=== PATIENT | female | born 1995 | race Caucasian/White ===

== ENCOUNTER 2017-03-24 18:27 | Emergency (ER) | payer SELFPAY ==
[2017-03-24 18:52] VITALS: BP 108/78
--- NOTE | 2017-03-24 19:46 | UC ---
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 " -During evaluation she reveals that she does cocaine, but denies addiction. Last cocaine was yesterday and day prior. SHe started takinga diet supplement from [employer] but doesn know the name. Takes it tid. Took dayquil this afternoon. Does admit to palpitations that started yesterday. denies CP. States that she always has SOB b/c she has asthma. -c/o UTI sx x 2 weeks, + dysuria. no fevers or chills. -has chronic BV, very frequent. treats w/ flagyl and requests rx. -Siria Doyle, RN was present for much of the history. -she has had several discrepencies to her history. -admits to have taken adderall that wasnt prescribed to her, but not recently. -denies b/c she has a female partner. LMP ~ 3 wks ago, due within the week. - History of Current Complaint Chief Complaint: UCRespiratory Stated Complaint: COUGH,CONGESTION,URINARY Time Seen by Provider: 03/24/17 19:01 Hx Last Menstrual Period: 02/21/17 - Allergy/Home Medications Allergies/Adverse Reactions: Allergies Allergy/AdvReac Type Severity Reaction Status Date / Time SEASONAL Allergy Congestion Uncoded 03/24/17 18:42 PMH/Surg Hx/FS Hx/Imm Hx Previously Healthy: Yes Respiratory History: Asthma - Surgical History Surgical History: Yes Surgery Procedure, Year, and Place: RIGHT ANKLE SURGERY 2012. tonsilectomy - Family History Known Family History: Positive: Cardiac Disease - father at 47 - Social History Alcohol Use: None Substance Use Type: Marijuana Substance Use Comment - Amount & Last Used: occasional use- last used this morning Smoking Status (MU): Heavy Every Day Tobacco Smoker Type: Cigarettes Amount Used/How Often: 1/2 pack daily Have You Smoked in the Last Year: Yes - Immunization History Most Recent Influenza Vaccination: 2016 Most Recent Tetanus Shot: 2011 Vaccination Up to Date: Yes Review of Systems Constitutional: Negative Skin: Negative Eyes: Negative ENT: Negative Respiratory: Negative Cardiovascular: Palpitations Gastrointestinal: Negative Genitourinary: Dysuria, Other - vagina d/c w/ fishy odor. h/o this since 11th grade. treated many times and has seen HOME SCHOOL COORDINATOR. uses flagyl. used vagisil earlier. Motor: Negative Neurovascular: Negative Musculoskeletal: Negative Neurological: Negative Psychological: Negative Is Patient Immunocompromised?: No All Other Systems Reviewed And Are Negative: Yes Physical Exam Triage Information Reviewed: Yes Appearance: Well-Appearing, No Pain Distress, Well-Nourished Vital Signs: Initial Vital Signs Temp 99.4 F 03/24/17 18:44 Pulse 150 03/24/17 18:44 Resp 18 03/24/17 18:44 BP 108/78 03/24/17 18:44 Pulse Ox 100 03/24/17 18:44 Vital Signs Reviewed: Yes Eye Exam: Normal ENT Exam: Normal ENT: Positive: Pharynx normal, Nasal drainage, TMs normal. Negative: Tonsillar swelling, Tonsillar exudate, Sinus tenderness Dental Exam: Normal Neck exam: Normal Neck: Positive: Supple, Nontender, No Lymphadenopathy Respiratory: Positive: Lungs clear, Normal breath sounds, No respiratory distress, No accessory muscle use. Negative: Crackles, Rhonchi, Stridor, Wheezing Cardiovascular: Positive: No Murmur, Tachycardia Abdomen Description: Positive: Soft, Other: - + suprapubic tenderness. Negative : CVA Tenderness (R), CVA Tenderness (L), Distended Musculoskeletal Exam: Normal Neurological Exam: Normal Psychological Exam: Normal Skin Exam: Normal Palpitations Course/Dx - Course Course Of Treatment: -EKG x 2 - sinus tachy 130s-150s. She is kept on monito for much of interview. HR up to 150s. -HCG neg. UA + leuks. sent for cx. -we have checked on her several times over the course of stay at [facility] she is stable w/o any sx. She choses to go home and not ER AMA. -We also discussed that there is a possibility that your insurance may not pay for this visit. - she signed out AMA. knows risks of arrhtmia, cardiac muscle damage, , permanent disability and loss of wages. recommend ER. -advised no decongestants , decrease alb use, no cold meds, stop diet supplements, stop caffeine & ciggs. - Differential Dx/Diagnosis Differential Diagnosis/HQI/PQRI: Cardiomyopathy, Medication Induced, Paroxymal SVT, Pericarditis, Other Provider Diagnoses: sinus tachycardia, BV, UTI Discharge - Discharge Plan Condition: Fair Disposition: AGAINST MEDICAL ADVICE Prescriptions: Metronidazole [Flagyl 500 MG TAB] 500 mg PO BID #14 tab Nitrofurantoin Monohyd Macro [Macrobid] 100 mg PO BID #14 cap Patient Education Materials: Bacterial Vaginosis (ED), Tachycardia (ED) Referrals: No Primary Care Phys,NOPCP [Primary Care Provider] - Additional Instructions: Please makes ure to call your providers at [facility] first thing Sunday. You have been told about the risk of going home rather than the ER as advised, AGAINST MEDICAL ADVICE. Your risks are having an arrhythmia which can lead to . -Make sure to follow up with your HOME SCHOOL COORDINATOR for the chronic BV. -You should go to the ER by calling 911 with any chest pain. palpitations, lightheadedness or dizziness.
== END 2017-03-24 20:09 | disposition left against medical advice (07) ==
LOC: UCCORT 18:27
DX: N76.0 Acute vaginitis (principal); B96.89 Other specified bacterial agents as the cause of diseases classified elsewhere; N39.0 Urinary tract infection, site not specified; R00.0 Tachycardia, unspecified; R05 Cough; R09.81 Nasal congestion; J30.2 Other seasonal allergic rhinitis; J45.909 Unspecified asthma, uncomplicated; F17.210 Nicotine dependence, cigarettes, uncomplicated
CPT/HCPCS: 81003; 84702; 87086; 93005; 99212; G0463

== ENCOUNTER 2019-02-26 16:58 | Emergency (ER) | payer OTHER ==
[2019-02-26 17:13] VITALS: BP 120/90
--- NOTE | 2019-02-26 17:52 | UC ---
UC General HPI - HPI Summary HPI Summary: 23 yo woman with 3 + week of painless rectal bleeding with stool passage. This has increased in the past 2 days, and she has had an increase in low abdominal cramping. Blood is bright red and drips into the toilet water. Has not tried any preparations for hemorrhoids. Denies constipation overall. Long hx of bacterial vaginosis, with last treatment 2 months ago. Sexually active with female partner, declines testing for STI's. - History of Current Complaint Chief Complaint: UCGI Stated Complaint: PERSONAL Time Seen by Provider: 02/26/19 17:38 Hx Obtained From: Patient Hx Last Menstrual Period: 09/11/2018 Onset/Duration: Gradual Onset, Lasting Weeks Timing: Intermittent Episodes Lasting: - seconds Onset Severity: Mild Current Severity: Moderate Pain Intensity: 4 Associated Signs & Symptoms: Positive: Abdominal Pain - low crampy discomfort bilaterally following stool passage. - Allergy/Home Medications Allergies/Adverse Reactions: Allergies Allergy/AdvReac Type Severity Reaction Status Date / Time SEASONAL Allergy Congestion Uncoded 02/26/19 17:13 PMH/Surg Hx/FS Hx/Imm Hx - Additional Past Medical History Additional PMH: overweight Psychological History: Anxiety, Other - chronic pain from scoliosis - Surgical History Surgical History: Yes Surgery Procedure, Year, and Place: RIGHT ANKLE SURGERY 2011. tonsilectomy - Family History Known Family History: Positive: Cardiac Disease - father at 47, Hypertension, Diabetes - father - Social History Occupation: Employed Full-time Alcohol Use: None Substance Use Type: Marijuana Substance Use Comment - Amount & Last Used: daily Smoking Status (MU): Heavy Every Day Tobacco Smoker Type: Cigarettes Amount Used/How Often: 1/2 pack daily Have You Smoked in the Last Year: Yes - Immunization History Most Recent Influenza Vaccination: 2017 Most Recent Tetanus Shot: 2011 Vaccination Up to Date: Yes Review of Systems All Other Systems Reviewed And Are Negative: Yes Constitutional: Positive: Negative Skin: Positive: Negative Eyes: Positive: Negative ENT: Positive: Negative Respiratory: Positive: Negative Cardiovascular: Positive: Negative Gastrointestinal: Positive: Nausea, Other - rectal bleeding Genitourinary: Positive: Vaginal/Penile Discharge Motor: Positive: Negative Neurovascular: Positive: Negative Musculoskeletal: Positive: Negative Neurological: Positive: Negative Psychological: Positive: Negative Is Patient Immunocompromised?: No Physical Exam Triage Information Reviewed: Yes Appearance: Well-Appearing, No Pain Distress, Obese, Other: - mildly flat affect Vital Signs: Initial Vital Signs Temp 100.0 F 02/26/19 17:05 Pulse 117 02/26/19 17:05 Resp 18 02/26/19 17:05 BP 120/90 02/26/19 17:05 Pulse Ox 100 02/26/19 17:05 ENT Exam: Normal Dental Exam: Normal Neck exam: Normal Respiratory: Positive: Lungs clear, Normal breath sounds Cardiovascular: Positive: RRR, No Murmur Abdomen Description: Positive: Nontender, No Organomegaly, Soft, Other: - small external hemorrhoid; rectum without stool or blood, no masses Pelvic Exam: Positive: External Exam Normal, Discharge - + odor Musculoskeletal Exam: Normal Neurological Exam: Normal Psychological Exam: Normal Skin: Positive: Other - + erythema without satellite lesions right groin Course/Dx - Course Course Of Treatment: Flagyl for suspected BV. HC suppositories. - Diagnoses Provider Diagnosis: Hemorrhoid, Bacterial vaginosis Discharge ED - Sign-Out/Discharge Documenting (check all that apply): Patient Departure All imaging exams completed and their final reports reviewed: No Studies - Discharge Plan Condition: Stable Disposition: HOME Prescriptions: Hydrocortisone SUPP* [Anusol HC Supp*] 25 mg RI BID #20 supp metroNIDAZOLE [Flagyl 500 MG TAB] 500 mg PO BID #14 tab Patient Education Materials: Hemorrhoids (ED), Bacterial Vaginosis (ED) Forms: *Work Release Referrals: No Primary Care Phys,NOPCP [Primary Care Provider] - Braxton Winston MD [Medical Doctor] - Additional Instructions: Use hydrocortisone suppositories until rectal bleeding resolves. If you have continued bleeding, please call Dr. Winston, gerneral surgeon, to arrange an assessment of the bleeding. Use a fiber supplemement such as Benefiber daily to imrpve stool passage. Use flagyl for treatment of vaginosis and try use of probiotics (from foods or supplements). Try use of Gold jean powder in the skin folds to decrease the rash in the groin. - Billing Disposition and Condition Condition: STABLE Disposition: Home
--- NOTE | 2019-03-01 07:38 | UC ---
- Progress Note Progress Note: + gardnerella - treated w/ flagyl. -neg whitley and trich. Course/Dx - Diagnoses Provider Diagnoses: Hemorrhoid, Bacterial vaginosis Discharge ED - Sign-Out/Discharge Documenting (check all that apply): Post-Discharge Follow Up All imaging exams completed and their final reports reviewed: No Studies - Discharge Plan Condition: Stable Disposition: HOME Prescriptions: Hydrocortisone SUPP* [Anusol HC Supp*] 25 mg DE BID #20 supp metroNIDAZOLE [Flagyl 500 MG TAB] 500 mg PO BID #14 tab Patient Education Materials: Bacterial Vaginosis (ED), Hemorrhoids (ED) Forms: *Work Release Referrals: No Primary Care Phys,NOPCP [Primary Care Provider] - Braxton Winston MD [Medical Doctor] - Additional Instructions: Use hydrocortisone suppositories until rectal bleeding resolves. If you have continued bleeding, please call Dr. Winston, gerneral surgeon, to arrange an assessment of the bleeding. Use a fiber supplemement such as Benefiber daily to imrpve stool passage. Use flagyl for treatment of vaginosis and try use of probiotics (from foods or supplements). Try use of Gold jean powder in the skin folds to decrease the rash in the groin. - Billing Disposition and Condition Condition: STABLE Disposition: Home
== END 2019-02-26 18:29 | disposition home or self-care (01) ==
LOC: UCCORT 16:58
DX: K64.9 Unspecified hemorrhoids (principal); N76.0 Acute vaginitis; R11.0 Nausea; F17.210 Nicotine dependence, cigarettes, uncomplicated; Z91.09 Other allergy status, other than to drugs and biological substances
CPT/HCPCS: 87480; 87510; 87660; 99212; G0463

== ENCOUNTER 2019-05-19 16:56 | Emergency (ER) | payer SELFPAY ==
[2019-05-19 17:09] VITALS: BP 134/79
--- NOTE | 2019-05-19 17:15 | UC ---
FLU HPI - HPI Summary HPI Summary: Pt presents as a request by her place of employment. Pt called in sick yesterday to fever and employer is requiring pt to be seen by healthcare provider prior to return to work. - History of Current Complaint Chief Complaint: UCRespiratory Stated Complaint: FEVER, CHILLS Time Seen by Provider: 05/19/19 17:12 Hx Obtained From: Patient Hx Last Menstrual Period: 09/11/2018 ?: No Onset/Duration: Sudden Onset, Resolved Severity Currently: None Severity Initially: Mild Pain Intensity: 0 Associated Signs & Symptoms: Positive: Fever, Myalgia Related Hx: Possible Flu/Infectious Exposure - Risk Factors Influenza Risk Factors: Negative - Allergy/Home Medications Allergies/Adverse Reactions: Allergies Allergy/AdvReac Type Severity Reaction Status Date / Time No Known Allergies Allergy Verified 05/19/19 17:04 Home Medications: Home Medications Gabapentin [Neurontin] 300 mg PO DAILY 10/31/18 [History Confirmed 05/19/19] clonazePAM [Clonazepam] 0.5 mg PO DAILY 10/31/18 [History Confirmed 05/19/19] PMH/Surg Hx/FS Hx/Imm Hx Previously Healthy: Yes - Surgical History Surgical History: Yes Surgery Procedure, Year, and Place: RIGHT ANKLE SURGERY 2011. tonsilectomy - Family History Known Family History: Positive: Cardiac Disease - father at 47, Hypertension, Diabetes - father - Social History Occupation: Employed Full-time Lives: With Family Alcohol Use: Occasionally Substance Use Type: Marijuana Substance Use Comment - Amount & Last Used: daily Smoking Status (MU): Heavy Every Day Tobacco Smoker Type: Cigarettes Amount Used/How Often: 1/2 pack daily Have You Smoked in the Last Year: Yes - Immunization History Most Recent Influenza Vaccination: 2016 Most Recent Tetanus Shot: 2011 Vaccination Up to Date: Yes Review of Systems All Other Systems Reviewed And Are Negative: Yes Constitutional: Positive: Fever Skin: Positive: Negative Eyes: Positive: Negative ENT: Positive: Negative Respiratory: Positive: Negative Cardiovascular: Positive: Negative Gastrointestinal: Positive: Negative Genitourinary: Positive: Negative Motor: Positive: Negative Neurovascular: Positive: Negative Musculoskeletal: Positive: Myalgia Neurological/Mental Status: Positive: Negative Psychological: Positive: Negative Is Patient Immunocompromised?: No Physical Exam Triage Information Reviewed: Yes Appearance: Well-Appearing Vital Signs: Initial Vital Signs Temp 98.6 F 05/19/19 17:04 Pulse 120 05/19/19 17:04 Resp 16 05/19/19 17:04 BP 134/79 05/19/19 17:04 Pulse Ox 100 05/19/19 17:04 Vital Signs Reviewed: Yes Eye Exam: Normal ENT Exam: Normal Dental Exam: Normal Neck exam: Normal Neck: Positive: Supple, Nontender, No Lymphadenopathy Respiratory Exam: Normal Cardiovascular: Positive: Tachycardia Musculoskeletal Exam: Normal Neurological Exam: Normal Psychological Exam: Normal Skin Exam: Normal Flu Course/Dx - Differential Dx/Diagnosis Differential Diagnosis/HQI/PQRI: Bronchitis, Influenza, Upper Respiratory Infection Provider Diagnosis: Viral syndrome Discharge ED - Sign-Out/Discharge Documenting (check all that apply): Patient Departure All imaging exams completed and their final reports reviewed: No Studies - Discharge Plan Condition: Stable Disposition: HOME Patient Education Materials: Viral Syndrome (ED) Forms: *Gen. Provider Communication Referrals: [facility] [Outside] - If Needed No Primary Care Phys,NOPCP [Primary Care Provider] - - Billing Disposition and Condition Condition: STABLE Disposition: Home
== END 2019-05-19 17:22 | disposition home or self-care (01) ==
LOC: UCCORT 16:56
DX: B34.9 Viral infection, unspecified (principal); M79.10 Myalgia, unspecified site; F17.210 Nicotine dependence, cigarettes, uncomplicated
CPT/HCPCS: 99211; G0463